=== PATIENT | male | born 1960 | race Two or more races ===

== ENCOUNTER 2023-09-03 07:51 | Emergency (ER) | payer OTHER, SELFPAY ==
--- NOTE | ~2023-09-03 | XR_ITS ---
EXAMINATION: XR CHEST CLINICAL INFORMATION: Chest pain COMPARISON: Chest CTA from the same day TECHNIQUE: 2 views of the chest were obtained. FINDINGS: No significant abnormality is noted involving the heart, lungs, mediastinum, bony thorax or soft tissues. XR/XR chest 2V IMPRESSION: Unremarkable examination.
--- NOTE | ~2023-09-03 | CT_ITS ---
EXAMINATION: CT ANGIOGRAM OF THE CHEST WITH AND WITHOUT CONTRAST (CT PULMONARY ANGIOGRAM FOR PE) CLINICAL INFORMATION: Reason for Exam left chest pain and tachycardia COMPARISON: None available. TECHNIQUE: Prior to contrast administration, noncontrast localization images were obtained. Subsequently, multidetector volumetric imaging was performed from the thoracic inlet to below the diaphragms following the administration of 65 mL Omnipaque 350 intravenous contrast. No contrast reaction reported Sagittal, coronal, and MIP oblique sagittal reformatted images were obtained on the CT workstation, uploaded to PACS, and reviewed. This CT examination was performed using dose optimization techniques as appropriate, variously including the following: *Automated exposure control *Adjustment of mA and/or kV according to patient size (this includes techniques or standardized protocols for targeted exams where dose is matched to indication/reason for exam; i.e. extremities or head) *Use of iterative reconstruction technique Total exam dose-length product 300 mGy-cm FINDINGS: QUALITY OF STUDY/CONTRAST BOLUS: Satisfactory. PULMONARY ARTERIES: No pulmonary emboli. THORACIC AORTA: No aneurysm. LUNG: Bronchial wall thickening and luminal narrowing involving the trachea, main, lobar and segmental bronchi. This and more notably affecting the right side. There is right lower lobe mucus plugging and atelectasis. No suspicious pulmonary nodule. PLEURA: No pleural effusion or pneumothorax. MEDIASTINUM: Normal heart size. No pericardial effusion. No hilar or mediastinal lymphadenopathy. No evidence of septal bowing or right heart strain. CORONARY ARTERY CALCIFICATION: None visualized on this study. CHEST WALL/AXILLA: No axillary or internal mammary lymphadenopathy. Asymmetric right gynecomastia. OSSEOUS STRUCTURES: Acute left fourth and fifth not significantly displaced lateral rib fractures. UPPER ABDOMEN: Unremarkable. No reflux of contrast into the hepatic veins to suggest elevated right heart pressures. CT/CT angio chest PE protocol IMPRESSION: No evidence of pulmonary embolus. Acute left fourth and fifth not significantly displaced lateral rib fractures. Bronchial wall thickening and luminal narrowing involving the trachea trachea through the segmental bronchi. There is mucous plugging in the right lower lobe with resulting atelectasis. Infectious and inflammatory etiologies should be considered. VTE: negative
--- NOTE | 2023-09-03 07:52 | ECG_ITS ---
Test Reason : CHEST PAIN Blood Pressure : / mmHG Vent. Rate : 113 BPM Atrial Rate : 113 BPM P-R Int : 130 ms QRS Dur : 074 ms QT Int : 328 ms P-R-T Axes : 038 034 048 degrees QTc Int : 449 ms Sinus tachycardia Otherwise normal ECG No previous ECGs available Referred By: Generic ED Physician Electronically Signed By:RAJANI GOETZ MD
[2023-09-03 08:03] VITALS: BP 189/114; PULSE 114; RESP 19; TEMP 36.6; O2SAT 94; BMI 27.4
[2023-09-03 08:22] LABS: MANUAL DIFF FLAG NO
[2023-09-03 08:24] LABS: Basophils Percent Auto 0.3 % (0-2); Eosinophils Absolute Auto 0.1 X10*3/uL (0.0-0.4); Eosinophils Percent Auto 0.8 % (0-4); Hematocrit 49.1 % (42.0-52.0); Hemoglobin 16.1 g/dl (14.0-18.0); Imm Gran Abs Auto 0.04 X10*3/uL (0.00-0.03); Imm Gran Pct Auto 0.3 % (0.0-0.4); Lymphocytes Absolute Auto 1.9 X10*3/uL (1.2-4.9); Lymphocytes Percent Auto 15.9 % (20-40); Mean Corpuscular HGB Conc 32.8 g/dl (31.0-36.0); Mean Corpuscular Volume 91.6 fL (80.0-98.0); Mean Platelet Volume 9.9 fL (9.4-12.4); Monocytes Absolute Auto 0.7 X10*3/uL (0.1-1.2); Monocytes Percent Auto 6.2 % (2-11); Neutrophils Absolute Auto 8.9 x10*3/uL (2.0-8.3); Neutrophils Percent Auto 76.5 % (45-73); Platelet Count 213 X10*3/uL (160-400); Red Blood Count 5.36 X10*6/uL (4.60-5.80); Red Cell Distribution Width 13.3 % (11.0-16.0); White Blood Count 11.7 X10*3/uL (4.8-10.8)
[2023-09-03 08:29] LABS: INTERNATIONAL NORM RATIO 0.9 (0.9-1.1); Prothrombin Time 10.9 SEC (11.1-13.3)
[2023-09-03 08:48] LABS: B Type Natriuretic Peptide 13 pg/mL (<100); Troponin-I High Sensitivity 2.8 ng/L (<3.5-35.0)
[2023-09-03 08:53] LABS: Anion Gap 16 (12-20); Blood Urea Nitrogen 8 mg/dL (9-16); Calcium 10.1 mg/dL (8.4-10.2); Carbon Dioxide 25 mmol/L (22-29); Chloride 101 mmol/L (96-108); Estimated Glomerular Filt Rate > 60; Glucose Random 227 mg/dL (60-115); Sodium 138 mmol/L (135-145)
[2023-09-03 10:00] VITALS: BP 180/88; PULSE 98; RESP 18; TEMP 36.8; O2SAT 93
--- NOTE | 2023-09-03 10:09 | PC.NURSE ---
a&ox4. vss and up to date aside from being hypertensive. nsr on the cardiac tech. pt presents to the ED w/ left sided chest pain that radiates the the left shoulder x 1 week. denies n/v/headache/change in vision/etc. pt states pain increases w/ deep inspiration and cough. labs obtained prior to coming into ED1. pt waiting for chest xray results at this time. no sob/wob noted. respirations even and unlabored. call fox placed within reach.
--- NOTE | 2023-09-03 10:18 | ED_ITS ---
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 He has a long-time smoker and smokes about a pack a day or possibly a pack and a half a day. Aside from recent events he has not seen any doctors in several years. He has been on no regular medications and has not required any hospitalizations. Three days ago on Wednesday he developed pain on his left chest that was quite severe. He has been coughing a lot recently. He went to [facility]'s Emergency room and was thought to possibly have musculoskeletal left-sided pain. He was also found to have high blood pressure and was prescribed albuterol for possible asthma or COPD. The patient was discharged from the emergency room with an albuterol inhaler. He has been using ibuprofen. He is continued to have left-sided pain. He stayed home from work on Wednesday and because of the pain. This morning the pain was quite severe and his daughter brought him to this emergency room for a 2nd opinion. No definite fever, sweats, chills. He has been coughing. He denies any injury or lifting strain. Of pain or swelling in his calves. No abdominal pain. No nausea. No vomiting. Related Data Previous Rx's Medication Instructions Recorded albuterol sulfate 90 mcg/actuation 2 puff inhalation Q4-6H PRN 09/03/23 aerosol inhaler shortness of breath or wheezing #8.5 grams azithromycin 250 mg tablet 250 mg PO DAILY 4 days #4 tabs 09/03/23 oxycodone 5 mg tablet 5 mg PO Q6H PRN pain #14 tabs 09/03/23 prednisone 20 mg tablet 40 mg (2 x 20 mg) PO DAILY 4 days 09/03/23 #8 tabs Allergies Allergy/AdvReac Type Severity Reaction Status Date / Time Penicillins [PENICILLINS] Allergy Unknown UNKNOWN Verified 09/03/23 08:02 Review of Systems 2 Review of Systems: Yes all other systems are reviewed and are negative [facility] Social History Social History Alcohol intake: current Alcohol intake frequency: a few times a week Smoked in Last 30 Days: Yes Use of substances other than those prescribed or required for medical reasons: No Advance Directives: No Advance Directives Information Provided: No Physical Exam 2 Vital Signs: Vital Signs: Last Vital Signs Temp 98.4 F 09/03/23 14:41 Pulse 101 H 09/03/23 14:41 Resp 18 09/03/23 14:41 BP 157/91 H 09/03/23 14:41 Pulse Ox 94 09/03/23 14:41 O2 Del Method Room Air 09/03/23 14:41 O2 Flow Rate 3 09/03/23 12:22 BMI result Body Mass Index 27.4 Const: Other: The patient is awake and alert. The patient looks like a muscular 63-year-old who was mildly unkempt and looks mildly chronically ill. He occasionally coughed and then seemed to clutch his left chest with pain. Otherwise he did not seem in pain or in any respiratory distress HEENT: Other: Face is symmetrical. Dentition is poor. Mucous membranes moist. Eyes: Other: Pupils are round equal, conjunctivae are clear, extraocular movements intact Neck: Other: No JVD Chest: Other: There is left-sided chest wall tenderness that seems to reproduce the patient's pain. Resp: Other: Mild wheezes bilaterally. No increased work of breathing. Cardio: Rate: tachycardic Rhythm: regular rhythm Heart sounds: S1 normal heart sound present and S2 normal heart sound present GI: Other: Abdomen is soft and nontender Skin: Other: Skin is pale and dry Neuro: Other: The patient is awake, alert, pleasant, cooperative. Mental status is normal. Cranial nerves are grossly intact. Moving all 4 extremities normally. He seems grossly neurologically intact. Extrem: Other: No calf swelling or tenderness. No asymmetry. No peripheral edema. Medications Administered Discontinued Medications Generic Name Dose Route Start Last Admin Trade Name Kaila PRN Reason Stop Dose Admin Acetaminophen 975 mg 09/03/23 10:35 09/03/23 10:59 Acetaminophen 325 Mg Tablet PO 09/03/23 10:36 975 mg ONCE ONE Administration Azithromycin 500 mg 09/03/23 14:24 09/03/23 14:40 Azithromycin 500 Mg Tablet PO 09/03/23 14:25 500 mg ONCE ONE Administration Albuterol Sulfate 2.5 mg/ 0 mg 09/03/23 13:46 09/03/23 13:52 Albuterol/Ipratropium 3 ml INHALE 02/23/24 13:47 5 dose ONCE ONE Administration Sodium Chloride 1,000 mls @ 999 mls/hr 09/03/23 11:00 09/03/23 12:01 Ns IV 09/03/23 12:00 Infused .Q1H1M SWAPNA Infusion Iohexol 100 ml 09/03/23 12:07 09/03/23 12:07 Iohexol 350 Mg/Ml 100 Ml Infus..Btl IV 09/03/23 12:08 65 ml ONCE ONE Administration Ketorolac Tromethamine 30 mg 09/03/23 10:27 09/03/23 10:59 Ketorolac Tromethamine 30 Mg/Ml Vial IM 09/03/23 10:28 30 mg ONCE ONE Administration Lidocaine 2 patch 09/03/23 10:27 09/03/23 10:59 Lidocaine 4 % Patch Adh..Patch TRANSDERMA 09/03/23 10:28 2 patch ONCE ONE Administration Protocol Oxycodone HCl 5 mg 09/03/23 13:26 09/03/23 13:38 Oxycodone Hcl Immed Release 5 Mg Tablet PO 09/03/23 13:27 5 mg ONCE ONE Administration Prednisone 60 mg 09/03/23 14:24 09/03/23 14:40 Prednisone 20 Mg Tablet PO 09/03/23 14:25 60 mg ONCE ONE Administration Medical Decision Making Medical Decision Making [facility] Narrative: The patient is a 63-year-old male who presents with severe left-sided pleuritic chest pain and the cough. He has wheezes on exam. He has a lifelong smoker. He has not seen doctors in a long time and has no official diagnoses and is not normally on any medications. 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 The patient was tachycardic. His D-dimer was somewhat elevated. We obtained a CT pulmonary angiogram that shows acute left 4th and 5th rib fractures. There are also signs of bronchitis. No pulmonary embolism. There is atelectasis but no definite infiltrate. I suspect the patient has some underlying COPD. I suspect that he has a COPD exacerbation in addition to to rib fractures. I think the rib fractures are most likely the result of coughing from his COPD exacerbation. The patient will be treated with oxycodone for pain in his rib fractures. With regard to his COPD exacerbation he will be placed on azithromycin and prednisone. He was also instructed in the use of an inhaler. He was here with his daughter who was helping the patient reactivate his health insurance. He does not have a primary care doctor. He is advised to try to find a primary care doctor. He should return if worse. Lab Data 09/03/23 08:12 09/03/23 08:12 Labs: Lab Results 09/03/23 Range/Units 08:12 WBC 11.7 H (4.8-10.8) X10*3/uL RBC 5.36 (4.60-5.80) X10*6/uL Hgb 16.1 (14.0-18.0) g/dl Hct 49.1 (42.0-52.0) % MCV 91.6 (80.0-98.0) fL MCH 30.0 (27.0-33.0) pg MCHC 32.8 (31.0-36.0) g/dl RDW 13.3 (11.0-16.0) % Plt Count 213 (160-400) X10*3/uL MPV 9.9 (9.4-12.4) fL Immature Gran % (Auto) 0.3 (0.0-0.4) % Neut % (Auto) 76.5 H (45-73) % Lymph % (Auto) 15.9 L (20-40) % [place] % (Auto) 6.2 (2-11) % Eos % (Auto) 0.8 (0-4) % Baso % (Auto) 0.3 (0-2) % Lymph # (Auto) 1.9 (1.2-4.9) X10*3/uL [place] # (Auto) 0.7 (0.1-1.2) X10*3/uL Eos # (Auto) 0.1 (0.0-0.4) X10*3/uL Baso # (Auto) 0.0 (0.0-0.2) X10*3/uL Abs Immat Gran (auto) 0.04 H (0.00-0.03) X10*3/uL Absolute Neuts (auto) 8.9 H (2.0-8.3) x10*3/uL Absolute Nucleated RBC 0.000 (0.0-0.012) X10*3/uL Nucleated RBC % (auto) 0.0 (0.0-0.2) /100WBC PT 10.9 L (11.1-13.3) SEC INR 0.9 (0.9-1.1) D-Dimer High Sensitivty 338 NG/ML Sodium 138 (135-145) mmol/L Potassium 4.0 (3.3-5.1) mmol/L Chloride 101 (96-108) mmol/L Carbon Dioxide 25 (22-29) mmol/L Anion Gap 16 (12-20) BUN 8 L (9-16) mg/dL Creatinine 0.86 (0.5-1.4) mg/dL Estim Creat Clear Calc 87.0 Estimated GFR > 60 Random Glucose 227 H (60-115) mg/dL Calcium 10.1 (8.4-10.2) mg/dL Troponin I High Sens 2.8 (<3.5-35.0) ng/L C-Reactive Protein 2.30 H (< or = 0.50) mg/dL B-Natriuretic Peptide 13 (<100) pg/mL COVID-19 (ЕКАТЕРИНА) Negative (Negative) COVID-19 Clin Com See Note Independent Interpretation I performed an independent interpretation of an: EKG Interpretation: EKG at 07:59 shows sinus tachycardia at 113 beats per minute. Otherwise normal EKG. Discharge Plan Discharge Clinical Impression: Acute exacerbation of chronic obstructive pulmonary disease, Multiple fractures of ribs of left side Patient Disposition: Home, Self-Care Instructions: Rib Fracture (ED), COPD (Chronic Obstructive Pulmonary Disease) (ED) Additional Instructions: I think you have some degree of a condition called COPD which is related to smoking. This is very much like asthma. I think you have what we would call ?COPD bronchitis. Please take the antibiotic, azithromycin, once a day as prescribed. Next dose tomorrow. Also take prednisone, a steroid medication, once a day as well. Next dose tomorrow. Use the albuterol with the AeroChamber (spacer) 2 puffs every 4-6 hours as needed for coughing or wheezing. The CT scan also shows that you have 2 rib fractures on the left side. For pain control you may take 2 extra-strength acetaminophen (Tylenol) up to 3 times a day. Additionally you may use the prescribed oxycodone as needed for pain. You may also take occasional ibuprofen as well. I would recommend avoiding work for the next several days. Please continue your efforts applying for health insurance and finding a primary care doctor. Return to the emergency room if worse. Prescriptions: New albuterol sulfate 90 mcg/actuation HFA aerosol inhaler 2 puff inhalation Q4-6H PRN (Reason: shortness of breath or wheezing) Qty: 8.5 0RF azithromycin 250 mg tablet 250 mg PO DAILY 4 Days Qty: 4 0RF Rx Instructions: start on day 2 of therapy prednisone 20 mg tablet 40 mg PO DAILY 4 Days Qty: 8 0RF oxycodone 5 mg tablet 5 mg PO Q6H PRN (Reason: pain) Qty: 14 0RF Rx Instructions: Partial Fill upon patient request. Stand Alone Forms: Work/School Release Interventions: ED Discharge Assessment Last Done: 09/03/23 15:20 Discharge Date/Time: 09/03/23 15:20
[2023-09-03 10:33] LABS: COVID-19 Test Negative (Negative); IDNOW Serial# 152EDE1D
[2023-09-03 10:40] LABS: D Dimer High Sensitivity 338 NG/ML
[2023-09-03] MEDS: Acetaminophen 325 MG TABLET 975 MG PO (10:59)
[2023-09-03] MEDS: Lidocaine 4 % Patch ADH..PATCH 2 PATCH TRANSDERMA (10:59)
[2023-09-03] MEDS: Ketorolac Tromethamine 30 MG/ML VIAL IM (10:59)
[2023-09-03] MEDS: 0.9 % Sodium Chloride 1,000 ML 999 ML IV (11:00)
--- NOTE | 2023-09-03 11:05 | PC.NURSE ---
18gIV placed in the left forearm. medication administered per provider order. IVF infusing at this time. pt waiting to go to CTA at this time. respirations remain even and unlabored. call fox placed within reach.
[2023-09-03] MEDS: iohexoL 350 MG/ML 100 ML INFUS..BTL IV (12:07)
[2023-09-03 12:22] VITALS: BP 119/56; PULSE 65; RESP 10; O2SAT 94
[2023-09-03 12:26] VITALS: BP 171/89; PULSE 89; RESP 13; TEMP 36.9; O2SAT 95
--- NOTE | 2023-09-03 12:44 | PC.NURSE ---
pt verbalizing pain level remains 10/10 despite medication administration. pt resting in bed waiting for results of chest xray as well as CTA. no sob/wob noted. respirations remain even and unlabored. family bedside. call fox placed within reach.
--- NOTE | 2023-09-03 13:28 | PC.NURSE ---
pt verbalizing coughing fit where he became extremely sob and rang the call fox. pt teary eyed/red in nature upon room entry. no sob/wob noted. respirations even and unlabored. resting comfortably on RA. pt positioned upright to promote patent airway. ED provider notified/aware at this time.
[2023-09-03] MEDS: oxyCODONE HCl Immed Release 5 MG TABLET PO (13:38)
--- NOTE | 2023-09-03 13:39 | PC.NURSE ---
medication administered per provider order. RT bedside assessing pt for bronchodilator protocol.
[2023-09-03] MEDS: Albuterol Sulfate 2.5 MG, Albuterol/Iprat 2.5/0.5MG 3 ML 3 ML INHALE (13:52)
[2023-09-03 13:54] VITALS: PULSE 93; RESP 12; O2SAT 92
[2023-09-03] MEDS: Azithromycin 500 MG TABLET PO (14:40)
[2023-09-03] MEDS: predniSONE 20 MG TABLET 60 MG PO (14:40)
[2023-09-03 14:41] VITALS: BP 157/91; PULSE 101; RESP 18; TEMP 36.9; O2SAT 94
== END 2023-09-03 15:20 | disposition home or self-care (01) ==
PROVIDERS: Emergency Provider Emergency Medicine
DX: J44.1 Chronic obstructive pulmonary disease with (acute) exacerbation (principal); M84.48XA Pathological fracture, other site, initial encounter for fracture; Z11.52 Encounter for screening for COVID-19; R07.89 Other chest pain; R06.2 Wheezing; R00.0 Tachycardia, unspecified; F17.210 Nicotine dependence, cigarettes, uncomplicated
CPT/HCPCS: 71046; 71275; 80048; 83880; 84484; 85025; 85379; 85610; 86140; 87635; 93005; 94640; 96360; 96372; 99284; 99285; J1885; Q9967

== ENCOUNTER → 2023-09-03 07:52 | Outpatient (BNV) | payer SELFPAY | PROVIDERS: Visit Provider Internal Medicine Cardiovascular Disease | DX: R00.0 Tachycardia, unspecified (principal); R07.9 Chest pain, unspecified | CPT/HCPCS: 93010 ==

== ENCOUNTER 2024-04-25 07:43 | Inpatient (IN) | payer MEDICAID, SELFPAY ==
[2024-04-25] VITALS (11 sets, daily range): BP systolic 123–205; BP diastolic 58–105; PULSE 74–113; RESP 17–20; TEMP 35.7–37; O2SAT 92–96; BMI 29.2
--- NOTE | ~2024-04-25 | XR_ITS ---
EXAMINATION: XR RIBS, RIGHT CLINICAL INFORMATION: Pain COMPARISON: 09/03/2023 TECHNIQUE: 3 views of the right ribs were obtained. FINDINGS: Lungs grossly are clear. Heart and pulmonary vessels normal. No pneumothorax. There are however nondisplaced fractures through the lateral right eighth and ninth ribs. The right shoulder joint is intact. XR/XR ribs RT min 3V w CXR1V IMPRESSION: Nondisplaced right-sided rib fractures. Electronically signed by: Celio Montes MD 04/25/2024 09:09 AM EDT
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
[2024-04-25] MEDS: amLODIPine Besylate 10 MG TABLET PO (08:28)
[2024-04-25] MEDS: Acetaminophen 325 MG TABLET 975 MG PO (08:28)
--- NOTE | 2024-04-25 09:09 | ECG_ITS ---
Test Reason : chest pain Blood Pressure : / mmHG Vent. Rate : 076 BPM Atrial Rate : 076 BPM P-R Int : 118 ms QRS Dur : 088 ms QT Int : 400 ms P-R-T Axes : 020 023 038 degrees QTc Int : 450 ms Normal sinus rhythm Normal ECG When compared with ECG of 03-SEP-2023 07:59, Vent. rate has decreased BY 37 BPM Referred By: Rosa Vickers Electronically Signed By:MIKAEL RAMIREZ
[2024-04-25 09:15] LABS: Influenza A PCR NEGATIVE (Negative); Influenza B PCR NEGATIVE (Negative); Resp Syncy Virus RNA Qual PCR NEGATIVE (Negative); SARS COV2 PCR INHOUSE NEGATIVE (Negative)
[2024-04-25 09:30] LABS: MANUAL DIFF FLAG NO
[2024-04-25 09:31] LABS: Basophils Absolute Auto 0.1 X10*3/uL (0.0-0.2); Basophils Percent Auto 0.7 % (0-2); Eosinophils Absolute Auto 0.1 X10*3/uL (0.0-0.4); Eosinophils Percent Auto 0.8 % (0-4); Hematocrit 48.2 % (42.0-52.0); Hemoglobin 16.3 g/dl (14.0-18.0); Imm Gran Abs Auto 0.02 X10*3/uL (0.00-0.03); Imm Gran Pct Auto 0.3 % (0.0-0.4); Lymphocytes Absolute Auto 1.3 X10*3/uL (1.2-4.9); Mean Corpuscular HGB Conc 33.8 g/dl (31.0-36.0); Mean Corpuscular Hemoglobin 31.5 pg (27.0-33.0); Mean Corpuscular Volume 93.1 fL (80.0-98.0); Mean Platelet Volume 9.7 fL (9.4-12.4); Monocytes Absolute Auto 0.7 X10*3/uL (0.1-1.2); Monocytes Percent Auto 9.2 % (2-11); Neutrophils Absolute Auto 5.2 x10*3/uL (2.0-8.3); Platelet Count 228 X10*3/uL (160-400); Red Blood Count 5.18 X10*6/uL (4.60-5.80); Red Cell Distribution Width 12.7 % (11.0-16.0); White Blood Count 7.3 X10*3/uL (4.8-10.8)
[2024-04-25] MEDS: Albuterol Sulfate 5 MG, Albuterol/Iprat 2.5/0.5MG 3 ML 3 ML INHALE (09:34)
[2024-04-25 10:12] LABS: Alanine Aminotransferase 18 U/L (0-40); Albumin Level 4.2 g/dL (3.5-5.0); Alkaline Phosphatase 94 U/L (39-117); Anion Gap 14 (12-20); Aspartate Amino Transferase 21 U/L (5-37); Bilirubin Direct 0.3 mg/dL (0.0-0.5); Bilirubin Total 0.7 mg/dL (0.0-1.0); Blood Urea Nitrogen 8 mg/dL (9-16); Calcium 9.8 mg/dL (8.4-10.2); Carbon Dioxide 28 mmol/L (22-29); Chloride 101 mmol/L (96-108); Creatinine Clr Calc Pharmacy 89.4; Estimated Glomerular Filt Rate > 60; Glucose Random 146 mg/dL (60-115); Magnesium 2.2 mg/dL (1.6-2.6); Potassium 4.2 mmol/L (3.3-5.1); Sodium 139 mmol/L (135-145); Total Protein 7.6 g/dL (6.5-8.0)
[2024-04-25 11:26] LABS: Troponin-I High Sensitivity 4.4 ng/L (<3.5-35.0)
[2024-04-25] MEDS: Lidocaine 4 % Patch ADH..PATCH 1 PATCH TRANSDERMA (11:40)
[2024-04-25] MEDS: Nicotine 21 MG PATCH.TD24 TRANSDERMA (11:40)
[2024-04-25] MEDS: Labetalol HCL 100 MG/20 ML VIAL 10 MG IVPUSH (11:45)
[2024-04-25] MEDS: methylPREDNISolone Sod Succ 40 MG/ML VIAL IVPUSH ×2 (11:46→21:54)
[2024-04-25] MEDS: Morphine Sulfate 4 MG/ML CARTRIDGE IVPUSH (11:49)
--- NOTE | 2024-04-25 13:23 | PHA.MEDREC ---
Pharmacy Consult ? Medication Reconciliation Pharmacy has completed the medication reconciliation. Spoke to patient at bedside, he states he only takes Ibuprofen 800mg as needed for pain, usually just once a day and last took it this morning. Also he confirmed he still has an albuterol inhaler.
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
[2024-04-25] MEDS: PHENobarbitaL sodium 130 MG/ML IM ONCE 200 MG IM (15:25)
[2024-04-25] MEDS: Enoxaparin Sodium 40 MG/0.4 ML SYRINGE SUBCUT (15:25)
[2024-04-25] MEDS: Nicotine Polacrilex 2 MG GUM BUCCAL (17:36)
[2024-04-25] MEDS: oxyCODONE HCl Immed Release 5 MG TABLET PO (17:36)
[2024-04-25] MEDS: 0.9 % Sodium Chloride Flush 3 ML SYRINGE IVFLUSH (17:37)
[2024-04-25] MEDS: Albuterol/Iprat 2.5/0.5MG 3 ML AMPUL.NEB INHALE (18:58)
[2024-04-25] MEDS: PHENobarbitaL sodium 130 MG/ML VIAL IM Q3Hx2 150 MG IM ×2 (19:19→21:54)
[2024-04-26] VITALS (11 sets, daily range): BP systolic 133–180; BP diastolic 78–95; PULSE 84–103; RESP 16–23; TEMP 36.1–36.8; O2SAT 89–95; BMI 28.4
[2024-04-26 05:06] LABS: MANUAL DIFF FLAG NO
[2024-04-26 05:08] LABS: Basophils Percent Auto 0.1 % (0-2); Eosinophils Percent Auto 0.3 % (0-4); Hematocrit 46.5 % (42.0-52.0); Hemoglobin 15.6 g/dl (14.0-18.0); Imm Gran Abs Auto 0.03 X10*3/uL (0.00-0.03); Imm Gran Pct Auto 0.4 % (0.0-0.4); Lymphocytes Absolute Auto 0.7 X10*3/uL (1.2-4.9); Lymphocytes Percent Auto 9.8 % (20-40); Mean Corpuscular HGB Conc 33.5 g/dl (31.0-36.0); Mean Corpuscular Volume 92.3 fL (80.0-98.0); Mean Platelet Volume 9.9 fL (9.4-12.4); Monocytes Absolute Auto 0.2 X10*3/uL (0.1-1.2); Monocytes Percent Auto 2.7 % (2-11); Neutrophils Absolute Auto 6.5 x10*3/uL (2.0-8.3); Neutrophils Percent Auto 86.7 % (45-73); Platelet Count 219 X10*3/uL (160-400); Red Blood Count 5.04 X10*6/uL (4.60-5.80); Red Cell Distribution Width 12.7 % (11.0-16.0); White Blood Count 7.5 X10*3/uL (4.8-10.8)
[2024-04-26 05:21] LABS: Anion Gap 13 (12-20); Blood Urea Nitrogen 9 mg/dL (9-16); Calcium 9.6 mg/dL (8.4-10.2); Carbon Dioxide 27 mmol/L (22-29); Chloride 99 mmol/L (96-108); Creatinine Clr Calc Pharmacy 101.3; Estimated Glomerular Filt Rate > 60; Glucose Random 178 mg/dL (60-115); Potassium 4.8 mmol/L (3.3-5.1); Sodium 134 mmol/L (135-145)
--- NOTE | 2024-04-26 06:16 | PC.NURSE ---
pt has been sleeping thur the night. pain with movement to right sided rib pain. no s/s of withdrawl noted. pt is calm and cooperative.
[2024-04-26] MEDS: Albuterol/Iprat 2.5/0.5MG 3 ML AMPUL.NEB INHALE ×4 (07:23→19:34)
[2024-04-26] MEDS: 0.9 % Sodium Chloride Flush 3 ML SYRINGE IVFLUSH ×3 (08:28→21:24)
[2024-04-26] MEDS: Lidocaine 4 % Patch ADH..PATCH 1 PATCH TRANSDERMA (08:29)
[2024-04-26] MEDS: Nicotine 21 MG PATCH.TD24 TRANSDERMA (08:32)
[2024-04-26] MEDS: PHENobarbitaL 15 MG TABLET 45 MG PO ×2 (08:33→21:24)
[2024-04-26 08:55] LABS: Estimated Average Glucose 126 mg/dL; Hemoglobin A1C 163.9982 umol/L; Total Hemoglobin (HGBA1C) 3948.7998 umol/L
[2024-04-26] MEDS: methylPREDNISolone Sod Succ 40 MG/ML VIAL IVPUSH ×2 (10:01→21:24)
[2024-04-26] MEDS: oxyCODONE HCl Immed Release 5 MG TABLET PO ×2 (10:03→18:42)
--- NOTE | 2024-04-26 10:56 | HO.PM.IMPN ---
Subjective Subjective Date of Service: 04/26/24 Interval History: Pt feeling well. no wheezing currently but feels when he is due for a duoneb. still some SOB with cough and conversational dyspnea. no fever, chills, nausea, vomiting. right rib pain controlled, pain with coughing and movement. daughter reports he had visual hallucinations last night, pt unsure if true. Constitutional Constitutional: Denies chills, Denies fatigue, Denies fever(s) and Denies headache(s) Eyes Eyes: Denies change in vision ENT Ears, Nose, Mouth, and Throat: Denies headache(s), Denies nasal congestion and Denies nasal discharge Cardiovascular Cardiovascular: Reports as per HPI, Denies rapid heart rate and Denies leg edema Respiratory Respiratory: Reports as per HPI Gastrointestinal Gastrointestinal: Denies constipation, Denies diarrhea, Denies nausea and Denies vomiting Genitourinary Genitourinary: Denies dysuria Musculoskeletal Musculoskeletal: Denies myalgias Integumentary/Breasts Skin/Breast: Denies rash Neurologic Neurologic: Denies headache(s) Endocrine Endocrine: Denies fatigue Physical Exam Vital Signs: Vital Signs: Last Vital Signs Temp 98.2 F 04/26/24 05:34 Pulse 97 04/26/24 08:36 Resp 17 04/26/24 08:36 BP 160/95 H 04/26/24 08:36 Pulse Ox 92 04/26/24 08:36 O2 Del Method Room Air 04/26/24 08:36 BMI result Body Mass Index 29.2 General: AOx3, no acute distress, daughter bedside Resp: CTA bilaterally, mild wheezing CVS: S1, S2, RRR Skin: Warm, dry, no diaphoesis Extremities: No edema, no tremor Psych: Appropriate affect, no agitation, not anxious Objective Data Active Medications Acetaminophen (Acetaminophen 325 Mg Tablet) 650 mg PO Q6H PRN PRN Reason: Pain, Mild (Pain Scale 1-3), fever or headache Albuterol/Ipratropium (Albuterol/Iprat 2.5/0.5mg 3 Ml Ampul.Neb) 3 ml INHALE RQ4H WHILE AWAKE SWAPNA Last Admin: 04/26/24 07:23 Dose: 3 ml Documented By: JACIEL Calcium Carbonate (Calcium Carbonate 750 Mg Tab.Chew) 750 mg PO Q4H PRN PRN Reason: Heartburn Enoxaparin Sodium (Enoxaparin Sodium 40 Mg/0.4 Ml Syringe) 40 mg SUBCUT Q24H [facility] Last Admin: 04/25/24 15:25 Dose: 40 mg Documented By: ALAINA Lidocaine (Lidocaine 4 % Patch Adh..Patch) 1 patch TRANSDERMA DAILY [facility]; Protocol Last Admin: 04/26/24 08:29 Dose: 1 patch Documented By: JOSE Magnesium Hydroxide (Milk Of Magnesia 30 Ml Oral.Susp) 30 ml PO DAILY PRN PRN Reason: Constipation Melatonin (Melatonin 3 Mg Tablet) 6 mg PO BEDTIME PRN PRN Reason: Insomnia Methylprednisolone Sodium Succinate (Methylprednisolone Sod Succ 40 Mg/Ml Vial) 40 mg IVPUSH Q12H [facility] Last Admin: 04/26/24 10:01 Dose: 40 mg Documented By: JOSE Nicotine (Nicotine 21 Mg Patch.Td24) 21 mg TRANSDERMA DAILY [facility] Last Admin: 04/26/24 08:32 Dose: 21 mg Documented By: JOSE Nicotine Polacrilex (Nicotine Polacrilex 2 Mg Gum) 2 mg BUCCAL Q2H PRN PRN Reason: Nicotine Cravings Last Admin: 04/25/24 17:36 Dose: 2 mg Documented By: ALAINA Ondansetron HCl (Ondansetron Hcl 4 Mg/2 Ml Vial) 4 mg IVPUSH Q8H PRN PRN Reason: Nausea and Vomiting Oxycodone HCl (Oxycodone Hcl Immed Release 5 Mg Tablet) 5 mg PO Q6H PRN PRN Reason: Pain, Severe (Pain Scale 7-10) Last Admin: 04/26/24 10:03 Dose: 5 mg Documented By: JOSE Pharmacy Consult (Consult Rx Etoh Phenob Im/Po) 1 each MISCELLANE ONCE PRN; Protocol PRN Reason: Consult order Phenobarbital (Phenobarbital 15 Mg Tablet) 45 mg PO BID [facility] Stop: 04/27/24 21:01 Last Admin: 04/26/24 08:33 Dose: 45 mg Documented By: JOSE Phenobarbital (Phenobarbital 30 Mg Tablet) 30 mg PO BID [facility] Stop: 04/29/24 21:01 Phenobarbital (Phenobarbital 30 Mg Tablet) 30 mg PO DAILY [facility] Stop: 05/01/24 09:01 Sodium Chloride (0.9 % Sodium Chloride Flush 3 Ml Syringe) 3 ml IVFLUSH QSHIFT SWAPNA Last Admin: 04/26/24 08:28 Dose: 3 ml Documented By: JOSE Labs 04/26/24 04:46 04/26/24 04:46 Labs: Laboratory Results - last 24 hr 04/25/24 04/26/24 09:24 04:46 MCV 92.3 MCH 31.0 MCHC 33.5 RDW 12.7 Plt Count 219 MPV 9.9 Immature Gran % (Auto) 0.4 Neut % (Auto) 86.7 H Lymph % (Auto) 9.8 L [place] % (Auto) 2.7 Eos % (Auto) 0.3 Baso % (Auto) 0.1 Lymph # (Auto) 0.7 L [place] # (Auto) 0.2 Eos # (Auto) 0.0 Baso # (Auto) 0.0 Abs Immat Gran (auto) 0.03 Absolute Neuts (auto) 6.5 Absolute Nucleated RBC 0.000 Nucleated RBC % (auto) 0.0 Anion Gap 13 Estim Creat Clear Calc 101.3 Estimated GFR > 60 Random Glucose 178 H Estimat Average Glucose 126 Hemoglobin A1c % 6.0 Calcium 9.6 Troponin I High Sens 4.4 D Assessment and Plan (1) Acute exacerbation of chronic obstructive pulmonary disease: Status: Acute (2) Multiple fractures of ribs of right side: Status: Acute (3) Hypertensive urgency: Status: Acute (4) Alcohol use disorder: Status: Acute Plan COPD exacerbation - still with conversational dyspnea - vitals stable - continue methylprednisone 40 BID and duonebs Q4H while awake R rib fx's - continue lidocaine patch and oxycodone for pain hypertensive urgency - improved, likey due to COPD exacerbation and rib fx - pt working on getting insurance this AM for outpt f/u - continue to monitor etoh abuse - CIWAs 0 throughout night - continue CIWA - phenobarb protocol - cessation discussed - addiction med consult per pt request - admit to tele tobacco use - cession discussed - continue nicotine patch full code VTE prophy: pneumoboots and lovenox Pt with continued COPD exacerbation complicated by hypertensive urgency and R rib fx's, responsive to IV steroids and breathing treatments, will need to continue IV steroids and breathing treatments for now, likely discharge tomorrow. Quality Stroke Does the patient have a stroke diagnosis?: No VTE Prior VTE?: No VTE Risk Level:: Medical - moderate - high VTE Device Contraindication: N/A - Device Ordered VTE Drug Contraindication: N/A - Med Ordered
[2024-04-26] MEDS: Nicotine Polacrilex 2 MG GUM BUCCAL (12:34)
--- NOTE | 2024-04-26 12:45 | MHC.CM.PN ---
Pt self-care, lives at home with his son. Pts daughter will transport him home. New HCP completed, now on file. No PCP, local PCP list provided
[2024-04-26] MEDS: Enoxaparin Sodium 40 MG/0.4 ML SYRINGE SUBCUT (15:04)
[2024-04-26] MEDS: PHENobarbitaL sodium 130 MG/ML VIAL 65 MG IM (18:41)
[2024-04-27] VITALS (10 sets, daily range): BP systolic 128–168; BP diastolic 70–90; PULSE 85–101; RESP 16–22; TEMP 36.1–37.1; O2SAT 92–98
[2024-04-27] MEDS: Albuterol/Iprat 2.5/0.5MG 3 ML AMPUL.NEB INHALE ×4 (07:26→20:10)
[2024-04-27] MEDS: Nicotine 21 MG PATCH.TD24 TRANSDERMA (09:25)
[2024-04-27] MEDS: PHENobarbitaL 15 MG TABLET 45 MG PO ×2 (09:25→20:05)
[2024-04-27] MEDS: Lidocaine 4 % Patch ADH..PATCH 1 PATCH TRANSDERMA ×2 (09:26→12:01)
[2024-04-27] MEDS: 0.9 % Sodium Chloride Flush 3 ML SYRINGE IVFLUSH ×3 (09:30→20:06)
[2024-04-27] MEDS: methylPREDNISolone Sod Succ 40 MG/ML VIAL 60 MG IVPUSH ×2 (09:30→17:40)
--- NOTE | 2024-04-27 09:33 | HO.PM.IMPN ---
Subjective Subjective Date of Service: 04/27/24 Interval History: feeling ok. still wheezing, SOB and chest pain from rib fx still SOB with cough and conversational dyspnea. no fever, chills, nausea, vomiting, headache. has not had a BM since getting here, but no discomfort Constitutional Constitutional: Denies chills, Denies fever(s) and Denies headache(s) Eyes Eyes: Denies change in vision ENT Ears, Nose, Mouth, and Throat: Denies headache(s) Cardiovascular Cardiovascular: Reports as per HPI Respiratory Respiratory: Reports as per HPI Gastrointestinal Gastrointestinal: Denies diarrhea, Denies nausea and Denies vomiting Genitourinary Genitourinary: Denies dysuria and Denies urinary hesitancy Musculoskeletal Musculoskeletal: Denies numbness and Denies tingling Integumentary/Breasts Skin/Breast: Denies rash Neurologic Neurologic: Denies headache(s), Denies numbness and Denies tingling Psychiatric Psychiatric: Denies visual hallucinations and Denies tactile hallucinations Physical Exam Vital Signs: Vital Signs: Last Vital Signs Temp 98.6 F 04/27/24 07:47 Pulse 85 04/27/24 07:47 Resp 20 04/27/24 07:47 BP 140/87 H 04/27/24 07:47 Pulse Ox 92 04/27/24 07:47 O2 Del Method Room Air 04/27/24 07:47 BMI result Body Mass Index 28.4 General: AOx3, appears uncomfortable Resp: rhonchi and wheezing throughout CVS: S1, S2, RRR GI: +BS, NT, no distention Skin: Warm, dry Extremities: No edema Psych: Appropriate affect Objective Data Active Medications Acetaminophen (Acetaminophen 325 Mg Tablet) 650 mg PO Q6H PRN PRN Reason: Pain, Mild (Pain Scale 1-3), fever or headache Albuterol/Ipratropium (Albuterol/Iprat 2.5/0.5mg 3 Ml Ampul.Neb) 3 ml INHALE RQ4H WHILE AWAKE SWAPNA Last Admin: 04/27/24 07:26 Dose: 3 ml Documented By: CHAGO Benzonatate (Benzonatate 100 Mg Capsule) 100 mg PO Q8H PRN PRN Reason: Cough Calcium Carbonate (Calcium Carbonate 750 Mg Tab.Chew) 750 mg PO Q4H PRN PRN Reason: Heartburn Enoxaparin Sodium (Enoxaparin Sodium 40 Mg/0.4 Ml Syringe) 40 mg SUBCUT Q24H [facility] Last Admin: 04/26/24 15:04 Dose: 40 mg Documented By: JOSE Lidocaine (Lidocaine 4 % Patch Adh..Patch) 1 patch TRANSDERMA DAILY [facility]; Protocol Last Admin: 04/27/24 09:26 Dose: 1 patch Documented By: TONI Magnesium Hydroxide (Milk Of Magnesia 30 Ml Oral.Susp) 30 ml PO DAILY PRN PRN Reason: Constipation Melatonin (Melatonin 3 Mg Tablet) 6 mg PO BEDTIME PRN PRN Reason: Insomnia Methylprednisolone Sodium Succinate (Methylprednisolone Sod Succ 40 Mg/Ml Vial) 60 mg IVPUSH Q8H [facility] Methylprednisolone Sodium Succinate (Methylprednisolone Sod Succ 40 Mg/Ml Vial) 20 mg IVPUSH ONCE ONE Stop: 04/27/24 09:33 Nicotine (Nicotine 21 Mg Patch.Td24) 21 mg TRANSDERMA DAILY [facility] Last Admin: 04/27/24 09:25 Dose: 21 mg Documented By: TONI Nicotine Polacrilex (Nicotine Polacrilex 2 Mg Gum) 2 mg BUCCAL Q2H PRN PRN Reason: Nicotine Cravings Last Admin: 04/26/24 12:34 Dose: 2 mg Documented By: MADISON Ondansetron HCl (Ondansetron Hcl 4 Mg/2 Ml Vial) 4 mg IVPUSH Q8H PRN PRN Reason: Nausea and Vomiting Oxycodone HCl (Oxycodone Hcl Immed Release 5 Mg Tablet) 5 mg PO Q6H PRN PRN Reason: Pain, Severe (Pain Scale 7-10) Last Admin: 04/26/24 18:42 Dose: 5 mg Documented By: JOSE Pharmacy Consult (Consult Rx Etoh Phenob Im/Po) 1 each MISCELLANE ONCE PRN; Protocol PRN Reason: Consult order Phenobarbital (Phenobarbital 15 Mg Tablet) 45 mg PO BID [facility] Stop: 04/27/24 21:01 Last Admin: 04/27/24 09:25 Dose: 45 mg Documented By: TONI Phenobarbital (Phenobarbital 30 Mg Tablet) 30 mg PO BID [facility] Stop: 04/29/24 21:01 Phenobarbital (Phenobarbital 30 Mg Tablet) 30 mg PO DAILY [facility] Stop: 10/21/24 09:01 Sodium Chloride (0.9 % Sodium Chloride Flush 3 Ml Syringe) 3 ml IVFLUSH QSHIFT [facility] Last Admin: 04/26/24 21:24 Dose: 3 ml Documented By: CARLA Labs 04/26/24 04:46 04/26/24 04:46 Assessment and Plan (1) Acute exacerbation of chronic obstructive pulmonary disease: Status: Acute (2) Multiple fractures of ribs of right side: Status: Acute (3) Alcohol use disorder: Status: Acute (4) Hypertensive urgency: Status: Acute Plan COPD exacerbation - still SOB and dyspnea - increase methylprednisone to 60 Q8H, continue duonebs Q4H while awake - tessalon for cough R rib fx's - continue lidocaine patch and oxycodone for pain hypertensive urgency - improved, likely due to COPD exacerbation and rib fx - continue to monitor etoh abuse - CIWAs 0 throughout night, 5 at highest - continue CIWA - phenobarb protocol - cessation discussed - addiction med consult per pt request - admit to tele tobacco use - cessation discussed - continue nicotine patch full code VTE prophy: pneumoboots and lovenox Pt with continued COPD exacerbation complicated by hypertensive urgency and R rib fx's, requiring increased dose of IV steroids and continued breathing treatments, will need to continue IV steroids and breathing treatments for now, likely discharge tomorrow if appropriate. Quality Stroke Does the patient have a stroke diagnosis?: No VTE Prior VTE?: No VTE Risk Level:: Medical - moderate - high VTE Device Contraindication: N/A - Device Ordered VTE Drug Contraindication: N/A - Med Ordered
[2024-04-27 10:37] LABS: MANUAL DIFF FLAG NO
[2024-04-27 10:41] LABS: Basophils Percent Auto 0.2 % (0-2); Eosinophils Absolute Auto 0.1 X10*3/uL (0.0-0.4); Eosinophils Percent Auto 0.4 % (0-4); Hematocrit 49.6 % (42.0-52.0); Hemoglobin 16.8 g/dl (14.0-18.0); Imm Gran Abs Auto 0.06 X10*3/uL (0.00-0.03); Imm Gran Pct Auto 0.5 % (0.0-0.4); Lymphocytes Absolute Auto 1.9 X10*3/uL (1.2-4.9); Mean Corpuscular HGB Conc 33.9 g/dl (31.0-36.0); Mean Corpuscular Hemoglobin 31.2 pg (27.0-33.0); Mean Corpuscular Volume 92.2 fL (80.0-98.0); Mean Platelet Volume 10.1 fL (9.4-12.4); Monocytes Absolute Auto 0.8 X10*3/uL (0.1-1.2); Monocytes Percent Auto 6.8 % (2-11); Neutrophils Absolute Auto 9.1 x10*3/uL (2.0-8.3); Neutrophils Percent Auto 76.1 % (45-73); Platelet Count 238 X10*3/uL (160-400); Red Blood Count 5.38 X10*6/uL (4.60-5.80); Red Cell Distribution Width 12.8 % (11.0-16.0)
[2024-04-27 11:10] LABS: Anion Gap 14 (12-20); Blood Urea Nitrogen 16 mg/dL (9-16); Calcium 10.1 mg/dL (8.4-10.2); Carbon Dioxide 29 mmol/L (22-29); Chloride 97 mmol/L (96-108); Creatinine Clr Calc Pharmacy 85.3; Estimated Glomerular Filt Rate > 60; Glucose Random 154 mg/dL (60-115); Potassium 3.9 mmol/L (3.3-5.1); Sodium 136 mmol/L (135-145)
[2024-04-27] MEDS: oxyCODONE HCl Immed Release 5 MG TABLET PO ×2 (12:00→20:05)
--- NOTE | 2024-04-27 14:01 | MHC.RECOVRN ---
AUDIT-C Brief Intervention Pt had positive screen for unhealthy alcohol use on admission, subsequently met with t/w to discuss alcohol use and recovery supports/options. This abstract writer, along with disaster recovery specialist Matt, met with patient to discuss current alcohol use and concerns related to increased risk of alcohol related problems.?Pts daughter present with pts permission. Pt reports 1.5 pints Bacardi mcginnis plus 2 Amstel Lights daily x approx 10 years. Pt reports prior to that he had been drinking only beer. 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 Pt and daughter report pt does not drink in the morning or during work, drinks after work and on Sundays. Discussed how alcohol use has impacted health, including negative impact on ability to maintain relationships as he is an angry drunk. Pt does not identify alcohol impacting his life in other ways. Pt ambivalent regarding alcohol use, however, would be interested in reducing the amount he drinks. Withdrawal History: denies hx withdrawal seizure, reports occasional tremors Treatment History: denies Supports:?daughter Discussed risk reduction strategies including drinking below the recommended limit. Provided pt with written resources including information on inpatient and outpatient treatment, [facility], harm reduction, and recovery coaching. Pt would like to try naltrexone and follow up with the [facility]. Pt provided with t/w contact information if questions or concerns arise. Denies other questions or concerns at this time.? Discussed with Mariana Rosa APRN.
[2024-04-27] MEDS: Enoxaparin Sodium 40 MG/0.4 ML SYRINGE SUBCUT (14:10)
[2024-04-27] MEDS: hydrOXYzine HCL 25 MG TABLET PO ×2 (14:11→20:05)
[2024-04-27] MEDS: Acetaminophen 325 MG TABLET 650 MG PO (14:15)
[2024-04-28] MEDS: methylPREDNISolone Sod Succ 40 MG/ML VIAL 60 MG IVPUSH ×2 (00:51→09:32)
[2024-04-28 03:22] VITALS: BP 150/85; PULSE 82; RESP 20; TEMP 36.3; O2SAT 92
[2024-04-28 06:55] LABS: MANUAL DIFF FLAG NO
[2024-04-28 06:59] LABS: Basophils Percent Auto 0.3 % (0-2); Eosinophils Absolute Auto 0.1 X10*3/uL (0.0-0.4); Eosinophils Percent Auto 0.8 % (0-4); Hematocrit 50.2 % (42.0-52.0); Hemoglobin 16.8 g/dl (14.0-18.0); Imm Gran Abs Auto 0.07 X10*3/uL (0.00-0.03); Imm Gran Pct Auto 0.6 % (0.0-0.4); Lymphocytes Absolute Auto 1.1 X10*3/uL (1.2-4.9); Lymphocytes Percent Auto 9.6 % (20-40); Mean Corpuscular HGB Conc 33.5 g/dl (31.0-36.0); Mean Corpuscular Hemoglobin 30.7 pg (27.0-33.0); Mean Corpuscular Volume 91.8 fL (80.0-98.0); Mean Platelet Volume 10.5 fL (9.4-12.4); Monocytes Absolute Auto 0.5 X10*3/uL (0.1-1.2); Neutrophils Absolute Auto 9.8 x10*3/uL (2.0-8.3); Neutrophils Percent Auto 84.7 % (45-73); Platelet Count 240 X10*3/uL (160-400); Red Blood Count 5.47 X10*6/uL (4.60-5.80); Red Cell Distribution Width 12.6 % (11.0-16.0); White Blood Count 11.5 X10*3/uL (4.8-10.8)
[2024-04-28 07:23] VITALS: BP 124/79; PULSE 96; RESP 18; TEMP 36.9; O2SAT 92
[2024-04-28] MEDS: Albuterol/Iprat 2.5/0.5MG 3 ML AMPUL.NEB INHALE ×2 (07:27→11:16)
[2024-04-28 07:28] VITALS: PULSE 96; RESP 18; O2SAT 93
[2024-04-28 08:31] LABS: Anion Gap 13 (12-20); Blood Urea Nitrogen 21 mg/dL (9-16); Calcium 9.9 mg/dL (8.4-10.2); Carbon Dioxide 28 mmol/L (22-29); Chloride 95 mmol/L (96-108); Estimated Glomerular Filt Rate > 60; Glucose Random 203 mg/dL (60-115); Potassium 4.4 mmol/L (3.3-5.1); Sodium 132 mmol/L (135-145)
[2024-04-28] MEDS: oxyCODONE HCl Immed Release 5 MG TABLET PO (09:30)
[2024-04-28] MEDS: PHENobarbitaL 30 MG TABLET PO ×2 (09:31→10:17)
[2024-04-28] MEDS: Nicotine 21 MG PATCH.TD24 TRANSDERMA (09:31)
[2024-04-28] MEDS: Lidocaine 4 % Patch ADH..PATCH 1 PATCH TRANSDERMA (09:32)
[2024-04-28] MEDS: 0.9 % Sodium Chloride Flush 3 ML SYRINGE IVFLUSH (09:33)
[2024-04-28] MEDS: Milk of Magnesia 30 ML ORAL.SUSP PO (09:38)
[2024-04-28] MEDS: Benzonatate 100 MG CAPSULE PO (10:16)
--- NOTE | 2024-04-28 10:51 | PM.DS ---
DS: Providers Provider Date of Service: 04/28/24 Date of admission: 04/25/24 14:10 Date of discharge: 04/28/24 Primary care physician: None Physician Consults: 04/26/24 09:54 Addiction Medicine Routine Consulting Provider: Addiction Covering Reason for consultation: etoh abuse, would like to talk Has provider been notified: No DS: Diagnosis Discharge Diagnosis (1) Acute exacerbation of chronic obstructive pulmonary disease: Status: Acute (2) Multiple fractures of ribs of right side: Status: Acute (3) Alcohol use disorder: Status: Chronic (4) Hypertensive urgency: Status: Acute DS: Summary Hospital Course Hospital Course: Admission: Pt is a 64 yo M with a pmhx significant for COPD, tobacco use, uncontrolled hypertension, and etoh abuse, who presented to the ED 04/25 with right rib pain, cough, shortness of breath and dizziness. He reports yesterday he was lifting a tire at work in heard a click and felt a clicking sensation in the right upper chest. He has had right-sided rib pain since. He also reports standing between his 2 sons who were verbally fighting however no physical trauma at that time which was 2 days ago. He describes the chest pain as sharp. He also has had a worsening cough from baseline. It is nonproductive. He does have a runny nose but denies any nasal congestion. He is also having some dizziness but denies headache abdominal pain or lower extremity edema. He did have diarrhea multiple times last week. He denies any sick contacts. He smokes 1-1-1/2 packs of cigarettes a day and drinks 2 pints of alcohol daily. He has never tried stopping alcohol, therefore, has never had a history of alcohol withdrawals. He was seen with his stepdaughter who helps with the history. Hospital course: Pt presented with right rib pain, cough, shortness of breath and dizziness, when admitted for COPD exacerbation, rib fractures, and hypertensive urgency. He has history of alcohol abuse with risk for withdrawal. He was treated with phenobarb while here, maintaining low risk for withdrawals, CIWA scores ranging from 0-5 at maximum. He has improved over the past few days, no respiratory difficulty, would like to go home today. We will send home with prednisone 40 mg q.d. for 5 days, albuterol inhaler q.4h to 6h p.r.n. for wheezing or shortness of breath, benzonatate 100 mg up to 3 times daily as needed for cough, and oxycodone 5 mg q.6 H p.r.n. for moderate to severe pain secondary to rib fractures. He was able to obtain a PCP and health insurance while here. Status at Discharge Functional status at discharge: independent ambulation Overall status at discharge: patient is progressing back to baseline Time Attestation Discharge Coordination Time (in mins): 45 mins Quality: Safe Use of Opioids Does Pt have an Active Cancer Diagnosis on the Problem List?: No Quality: Stroke Does the patient have a stroke diagnosis?: No Physical Exam Vital Signs: Vital Signs: Last Vital Signs Temp 98.5 F 04/28/24 07:23 Pulse 96 04/28/24 07:28 Resp 18 04/28/24 07:28 BP 124/79 04/28/24 07:23 Pulse Ox 92 04/28/24 07:23 O2 Del Method Room Air 04/28/24 07:23 BMI result Body Mass Index 28.4 General: AOx3, no acute distress, slouched to the right side sitting up eating breakfast Resp: mild wheezing bilaterally CVS: S1, S2, RRR Skin: Warm, dry Extremities: No edema Psych: Appropriate affect DS: Data Data Completed and Pending Labs on day of discharge: Laboratory Results - last 24 hr 04/27/24 04/28/24 10:26 05:50 WBC 11.5 H RBC 5.47 Hgb 16.8 Hct 50.2 MCV 91.8 MCH 30.7 MCHC 33.5 RDW 12.6 Plt Count 240 MPV 10.5 Immature Gran % (Auto) 0.6 H Neut % (Auto) 84.7 H Lymph % (Auto) 9.6 L [place] % (Auto) 4.0 Eos % (Auto) 0.8 Baso % (Auto) 0.3 Lymph # (Auto) 1.1 L [place] # (Auto) 0.5 Eos # (Auto) 0.1 Baso # (Auto) 0.0 Abs Immat Gran (auto) 0.07 H Absolute Neuts (auto) 9.8 H Absolute Nucleated RBC 0.000 Nucleated RBC % (auto) 0.0 Sodium 136 132 L Potassium 3.9 4.4 Chloride 97 95 L Carbon Dioxide 29 28 Anion Gap 14 13 BUN 16 21 H Creatinine 0.88 0.79 Estim Creat Clear Calc 85.3 95.0 Estimated GFR > 60 > 60 Random Glucose 154 H 203 H Calcium 10.1 9.9 Discharge Plan Discharge Anticipated Discharge Date/Time: 04/28/24 10:36 Patient Disposition: Home, Self-Care Discharge Diagnosis: COPD exacerbation, hypertensive urgency, R rib fractures x2 Referrals: Physician,None [Primary Care Provider] - 1 Week Discharge Medications: New oxycodone 5 mg Tablet 5 mg PO Q6H PRN (Reason: Pain, Severe (Pain Scale 7-10)) Qty: 10 0RF Rx Instructions: Partial Fill upon patient request. benzonatate 100 mg Capsule 100 mg PO Q8H PRN (Reason: Cough) Qty: 21 0RF lidocaine [Lidocaine Pain Relief] 4 % Adhesive Patch,Medicated 1 patch transdermal DAILY Qty: 14 0RF Protocol: Apply to: Apply to: right side chest prednisone 20 mg tablet 40 mg PO DAILY Qty: 10 0RF Continued ibuprofen 800 mg Tablet 800 mg PO Q8H PRN (Reason: Pain) albuterol sulfate 90 mcg/actuation HFA aerosol inhaler 2 puff inhalation Q4-6H PRN (Reason: shortness of breath or wheezing) Qty: 8.5 3RF Diet: Regular diet Activity on Discharge: As tolerated Stand Alone Forms: Patient Portal Discharge page Print Language: Estonian Care Plan Goals: recovery from COPD exacerbation and rib fx follow up with PCP regarding blood pressures and possible need for medication continue alcohol and smoking cessation Health Concerns: COPD, hypertension (ok after initial tx in ED), rib fractures, alcohol abuse, tobacco use Plan of Treatment: take prednisone 40mg dialy for 5 days use albuterol inhaler every 4 hours as needed take benzonatate 100mg up to 3 times daily as needed for cough take oxycodone as needed for pain, do not combine with alcohol follow up with PCP in 1-2 weeks Assessment: see above Patient Instructions: COPD (Chronic Obstructive Pulmonary Disease) (GEN)
[2024-04-28 11:16] VITALS: PULSE 91; RESP 18; O2SAT 92
--- NOTE | 2024-04-28 11:38 | MHC.CM.PN ---
Per ROUNDS discussion, Patient will be medicallycleared for dc to home today, self care.
[2024-04-28 12:00] VITALS: BP 147/94; PULSE 94; RESP 20; TEMP 36.7; O2SAT 91
--- NOTE | 2024-04-28 14:13 | HO.ADDICTPRO ---
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 He is agreeable to medication because it is one pill once per day. He acknowledges that drinking after work has just become a routine for him He reports cravings and thoughts of drinking have been frequent during this admission. Withdrawal sx have subsided, but rib pain is present. Discussed risk reduction with drinking once he goes home Advised to start medication after he is finished with pain medications Review of Systems Constitutional: Reports as per HPI Mental Status Exam Mental Status Exam Patient Appearance: Appropriate Level of Consciousness: Awake, Appropriate and Alert Patient Behavior: Appropriate and Cooperative Mood Description: Calm Affect Description: Calm Diagnostics Vital Signs (24Hr): Vital Signs - 24 hr 04/27/24 14:55 04/27/24 15:37 04/27/24 19:50 Temperature 97.3 F Pulse Rate 90 100 94 Respiratory Rate 18 22 H 18 Blood Pressure 128/71 Pulse Oximetry 92 Oxygen Delivery Method Room Air 04/27/24 20:00 04/27/24 23:56 04/28/24 03:22 Temperature 97.2 F 98.7 F 97.4 F Pulse Rate 101 H 88 82 Respiratory Rate 19 16 20 Blood Pressure 140/70 H 136/79 150/85 H Pulse Oximetry 98 92 92 Oxygen Delivery Method Room Air Room Air Room Air 04/28/24 07:23 04/28/24 07:28 04/28/24 11:16 Temperature 98.5 F Pulse Rate 96 96 91 Respiratory Rate 18 18 18 Blood Pressure 124/79 Pulse Oximetry 92 Oxygen Delivery Method Room Air 04/28/24 12:00 Temperature 98.1 F Pulse Rate 94 Respiratory Rate 20 Blood Pressure 147/94 H Pulse Oximetry 91 L Oxygen Delivery Method Room Air BMI result Body Mass Index 28.4 Labs 04/28/24 05:50 04/28/24 05:50 Labs: Laboratory Results - last 48 hr 04/27/24 04/28/24 10:26 05:50 WBC 12.0 H 11.5 H RBC 5.38 5.47 Hgb 16.8 16.8 Hct 49.6 50.2 MCV 92.2 91.8 MCH 31.2 30.7 MCHC 33.9 33.5 RDW 12.8 12.6 Plt Count 238 240 MPV 10.1 10.5 Immature Gran % (Auto) 0.5 H 0.6 H Neut % (Auto) 76.1 H 84.7 H Lymph % (Auto) 16.0 L 9.6 L [place] % (Auto) 6.8 4.0 Eos % (Auto) 0.4 0.8 Baso % (Auto) 0.2 0.3 Lymph # (Auto) 1.9 1.1 L [place] # (Auto) 0.8 0.5 Eos # (Auto) 0.1 0.1 Baso # (Auto) 0.0 0.0 Abs Immat Gran (auto) 0.06 H 0.07 H Absolute Neuts (auto) 9.1 H 9.8 H Absolute Nucleated RBC 0.000 0.000 Nucleated RBC % (auto) 0.0 0.0 Sodium 136 132 L Potassium 3.9 4.4 Chloride 97 95 L Carbon Dioxide 29 28 Anion Gap 14 13 BUN 16 21 H Creatinine 0.88 0.79 Estim Creat Clear Calc 85.3 95.0 Estimated GFR > 60 > 60 Random Glucose 154 H 203 H Calcium 10.1 9.9 Imaging Radiology Impressions: ITS Impressions Ribs X-Ray 04/25/24 08:15 IMPRESSION: Nondisplaced right-sided rib fractures. Electronically signed by: Celio Montes MD 04/25/2024 09:09 AM EDT Medications Medications Current Medications Acetaminophen (Acetaminophen 325 Mg Tablet) 650 mg PO Q6H PRN PRN Reason: Pain, Mild (Pain Scale 1-3), fever or headache Last Admin: 04/27/24 14:15 Dose: 650 mg Albuterol/Ipratropium (Albuterol/Iprat 2.5/0.5mg 3 Ml Ampul.Neb) 3 ml INHALE RQ4H WHILE AWAKE SWAPNA Last Admin: 04/28/24 11:16 Dose: 3 ml Benzonatate (Benzonatate 100 Mg Capsule) 100 mg PO Q8H PRN PRN Reason: Cough Last Admin: 04/28/24 10:16 Dose: 100 mg Calcium Carbonate (Calcium Carbonate 750 Mg Tab.Chew) 750 mg PO Q4H PRN PRN Reason: Heartburn Enoxaparin Sodium (Enoxaparin Sodium 40 Mg/0.4 Ml Syringe) 40 mg SUBCUT Q24H [facility] Last Admin: 04/27/24 14:10 Dose: 40 mg Hydroxyzine HCl (Hydroxyzine Hcl 25 Mg Tablet) 25 mg PO Q6H PRN PRN Reason: Anxiety Last Admin: 04/27/24 20:05 Dose: 25 mg Lidocaine (Lidocaine 4 % Patch Adh..Patch) 1 patch TRANSDERMA DAILY [facility]; Protocol Last Admin: 04/28/24 09:32 Dose: 1 patch Magnesium Hydroxide (Milk Of Magnesia 30 Ml Oral.Susp) 30 ml PO DAILY PRN PRN Reason: Constipation Last Admin: 04/28/24 09:38 Dose: 30 ml Melatonin (Melatonin 3 Mg Tablet) 6 mg PO BEDTIME PRN PRN Reason: Insomnia Methylprednisolone Sodium Succinate (Methylprednisolone Sod Succ 40 Mg/Ml Vial) 60 mg IVPUSH Q8H [facility] Last Admin: 04/28/24 09:32 Dose: 60 mg Nicotine (Nicotine 21 Mg Patch.Td24) 21 mg TRANSDERMA DAILY [facility] Last Admin: 04/28/24 09:31 Dose: 21 mg Nicotine Polacrilex (Nicotine Polacrilex 2 Mg Gum) 2 mg BUCCAL Q2H PRN PRN Reason: Nicotine Cravings Last Admin: 04/26/24 12:34 Dose: 2 mg Ondansetron HCl (Ondansetron Hcl 4 Mg/2 Ml Vial) 4 mg IVPUSH Q8H PRN PRN Reason: Nausea and Vomiting Oxycodone HCl (Oxycodone Hcl Immed Release 5 Mg Tablet) 5 mg PO Q6H PRN PRN Reason: Pain, Severe (Pain Scale 7-10) Last Admin: 04/28/24 09:30 Dose: 5 mg Pharmacy Consult (Consult Rx Etoh Phenob Im/Po) 1 each MISCELLANE ONCE PRN; Protocol PRN Reason: Consult order Phenobarbital (Phenobarbital 30 Mg Tablet) 30 mg PO BID [facility] Stop: 04/29/24 21:01 Last Admin: 04/28/24 10:17 Dose: 30 mg Phenobarbital (Phenobarbital 30 Mg Tablet) 30 mg PO DAILY [facility] Stop: 05/01/24 09:01 Last Admin: 04/28/24 09:31 Dose: 30 mg Sodium Chloride (0.9 % Sodium Chloride Flush 3 Ml Syringe) 3 ml IVFLUSH QSHIFT [facility] Last Admin: 04/28/24 09:33 Dose: 3 ml Allergies Allergies Allergy/AdvReac Type Severity Reaction Status Date / Time Penicillins [PENICILLINS] Allergy Unknown UNKNOWN Verified 04/25/24 08:00 Assessment & Plan Assessment & Plan (1) Alcohol use disorder: Status: Chronic Code(s): F10.90 - Alcohol use, unspecified, uncomplicated Assessment and Plan: naltrexone to be started following d/c of oxycodone Total time managing care of this patient today __25__ minutes.
== END 2024-04-28 18:26 | disposition home or self-care (01) | DRG 140 ==
LOC: HO.ED 11:05 → HO.EDOVER 14:14 → HO.IMC 04-26 19:42
PROVIDERS: Physician Assistant; Admitting Provider Physician Assistant; Emergency Provider Emergency Medicine Emergency Medical Services; Visit Provider Physician Assistant
DX: J44.1 Chronic obstructive pulmonary disease with (acute) exacerbation (principal); S22.41XA Multiple fractures of ribs, right side, initial encounter for closed fracture; X58.XXXA Exposure to other specified factors, initial encounter; I10 Essential (primary) hypertension; F10.10 Alcohol abuse, uncomplicated; I16.0 Hypertensive urgency; F17.210 Nicotine dependence, cigarettes, uncomplicated; Z71.6 Tobacco abuse counseling; Z20.822 Contact with and (suspected) exposure to COVID-19; Z79.899 Other long term (current) drug therapy
CPT/HCPCS: 0241U; 36415; 71101; 80048; 80076; 83036; 83735; 84484; 85025; 93005; 94640; 99285; J1650; J1920; J2270; J2560; J2919

== ENCOUNTER → 2024-04-25 09:09 | Outpatient (BNV) | payer MEDICAID, SELFPAY | PROVIDERS: Admitting Provider Physician Assistant; Emergency Provider Emergency Medicine Emergency Medical Services; Visit Provider Internal Medicine | DX: R07.9 Chest pain, unspecified (principal) | CPT/HCPCS: 93010 ==

== ENCOUNTER → 2024-04-25 14:10 | Outpatient (BNV) | payer MEDICAID, SELFPAY | PROVIDERS: Admitting Provider Physician Assistant; Emergency Provider Emergency Medicine Emergency Medical Services; Visit Provider Physician Assistant | DX: S22.41XA Multiple fractures of ribs, right side, initial encounter for closed fracture (principal); J44.1 Chronic obstructive pulmonary disease with (acute) exacerbation; I16.0 Hypertensive urgency; F10.90 Alcohol use, unspecified, uncomplicated; Z72.0 Tobacco use | CPT/HCPCS: 99222; 99232; 99239 ==

== ENCOUNTER → 2024-04-25 14:10 | Outpatient (BNV) | payer MEDICAID, SELFPAY | PROVIDERS: Admitting Provider Physician Assistant; Emergency Provider Emergency Medicine Emergency Medical Services; Visit Provider Nurse Practitioner Psychiatric/Mental Health | DX: F10.90 Alcohol use, unspecified, uncomplicated (principal) | CPT/HCPCS: 99231 ==